=== PATIENT | male | born 1950 | race Two or more races ===

== ENCOUNTER 2017-03-23 03:15 | Emergency (ER) | payer MEDICAID ==
[~2017-03-23] VITALS: Ht 152.4 cm; Wt 63.5 kg
[~2017-03-23 03:15] MED LIST: AMLO5TAB2 PO; CLON0.1T PO; CLOP75TA41 PO; DOCU100T15 PO; FINA5TAB4 PO; FURO20TA PO; HYDR-3682 PO; HYDR50TA15 PO; ISOS60TA24 PO; KEP500T PO; PRE5T GT; TAMS0.4C36 PO
[2017-03-23] MEDS ORDERED: ASPirin 81 mg TAB PO ONE (03:45)
[2017-03-23 04:03] LABS: Alanine Aminotransferase 16 U/L (16-61); Albumin 2.4 g/dL (3.4-5.0); Anion Gap 7 (5-15); Aspartate Aminotransferase 13 U/L (15-37); BUN/Creatinine Ratio 20.8; Basophils # (auto) 0 uL; Basophils % (auto) 0.7 % (0.0-2.0); Blood Urea Nitrogen 25 mg/dL (7-18); Calcium 8.3 mg/dL (8.5-10.1); Carbon Dioxide 27 mmol/L (21-32); Chloride 102 mmol/L (98-107); Eosinophils # (auto) 0.3 uL; Eosinophils % (auto) 4.3 % (0.0-7.0); GFR African American 78 mL/min; GFR Non-African American 65 mL/min; Glucose 228 mg/dL (74-106); Hematocrit 32.2 % (41.0-53.0); Lymphocytes # (auto) 1.6 uL; Lymphocytes % (auto) 23.3 % (10.0-50.0); Magnesium 2.4 mg/dL (1.6-2.6); Mean Corpuscular Hemoglobin 28.7 pg (28.0-32.0); Mean Corpuscular Hgb Conc. 34.2 g/dL (32.0-36.0); Mean Corpuscular Volume 83.9 fL (80.0-100.0); Monocytes # (auto) 0.4 uL; Monocytes % (auto) 6.5 % (0.0-12.0); Neutrophils # (auto) 4.5 uL; Neutrophils % (auto) 65.2 % (37.0-80.0); Platelet Count (auto) 341 10^3/uL (140-450); Red Blood Cells 3.84 10^6/uL (4.5-5.90); Red Cell Distribution Width 14.7 % (11.8-14.3); Sodium 136 mmol/L (136-145); White Blood Cell 6.8 10^3/uL (4.4-10.8)
[2017-03-23 04:08] LABS: Alkaline Phosphatase 81 U/L (45-117); Bilirubin, Total 0.3 mg/dL (0.2-1.0); Total Protein 6.5 g/dL (6.4-8.2)
[2017-03-23 06:38] VITALS: BP 182/78
[2017-03-23] MEDS ORDERED: cloNIDine HCL 0.1 MG TAB PO ONE (06:45)
== END 2017-03-23 07:55 | disposition home or self-care (01) ==
LOC: ER 03:16
DX: I12.9 Hypertensive chronic kidney disease with stage 1 through stage 4 chronic kidney disease, or unspecified chronic kidney disease (principal); N18.9 Chronic kidney disease, unspecified; R51 Headache; Z86.73 Personal history of transient ischemic attack (TIA), and cerebral infarction without residual deficits; Z79.899 Other long term (current) drug therapy
CPT/HCPCS: 36415; 70450; 80053; 83735; 83880; 84484; 85025; 93005